=== PATIENT | female | born 1990 | race Asian ===

== ENCOUNTER 2021-03-02 05:22 | Observation (INO) | payer OTHER | END 2021-03-02 10:43 | disposition home or self-care (01) | LOC: GENOP 05:22 → OB 05:52 | PROVIDERS: ADMIT Obstetrics & Gynecology | DX: O32.1XX0 Maternal care for breech presentation, not applicable or unspecified (principal); Z3A.37 37 weeks gestation of pregnancy; Z20.822 Contact with and (suspected) exposure to COVID-19 | CPT/HCPCS: G0378; J3105; U0002 ==

== ENCOUNTER 2021-03-10 13:12 | Outpatient (CLI) | payer OTHER ==
[2021-03-10 14:26] LABS: HEMOGLOBIN 13.9 gm/dl (12.3-15.3); RED BLOOD COUNT 4.39 M/UL (4.00-5.10); WHITE BLOOD COUNT 15.8 K/UL (4.5-11.0)
== END 2021-03-10 14:15 | disposition home or self-care (01) ==
LOC: GENOP 13:12
PROVIDERS: Obstetrics & Gynecology
DX: Z01.812 Encounter for preprocedural laboratory examination (principal)
CPT/HCPCS: 36415; 81001; 85025

== ENCOUNTER 2021-03-13 05:35 | Inpatient (IN) | payer OTHER ==
[~2021-03-13] VITALS: Ht 157.5 cm; Wt 71.7 kg
[2021-03-13] MEDS ORDERED: PRENATABS FA T1 EACH PO (06:15)
[2021-03-13] MEDS ORDERED: DOCUSATE SODIU100 MG PO (09:35)
[2021-03-13] MEDS ORDERED: HYDROCODON-ACE1 EAC4 PO (09:35)
[2021-03-13] MEDS ORDERED: IBUPROFEN600 MG PO (09:35)
[2021-03-14 06:02] LABS: HEMOGLOBIN 12.2 gm/dl (12.3-15.3)
== END 2021-03-15 14:12 | disposition home or self-care (01) | DRG 787 ==
LOC: OB 05:35
PROVIDERS: ADMIT Obstetrics & Gynecology
PROC: 3E033VJ Introduction of Other Hormone into Peripheral Vein, Percutaneous Approach (ICD-10-PCS; 2021-03-13)
PROC: 10D00Z1 Extraction of Products of Conception, Low, Open Approach (ICD-10-PCS; principal; 2021-03-13 07:30)
DX: O32.1XX0 Maternal care for breech presentation, not applicable or unspecified (principal); O72.1 Other immediate postpartum hemorrhage; Z3A.39 39 weeks gestation of pregnancy; Z37.0 Single live birth; Z83.3 Family history of diabetes mellitus; Z82.49 Family history of ischemic heart disease and other diseases of the circulatory system
CPT/HCPCS: 36415; 81001; 82800; 85014; 85018; 85025; 90715; C9113; J0690; J2210; J2274; J2370; J2405; J2590; J3010; J7120; U0003